=== PATIENT | female | born 1970 | race Caucasian/White ===

== ENCOUNTER 2018-05-25 00:46 | Observation (INO) ==
[2018-05-25] MEDS ORDERED: 0.9 % Sodium Chloride 500 ML IVC ONE (01:12)
[2018-05-25 01:31] LABS: Basophils % 0.5 %; Eosinophils # 0.1 K/mcL (0.0-0.6); Eosinophils % 0.8 %; Hematocrit 37.3 % (35.3-44.9); Hemoglobin 12.7 g/dL (11.5-15.4); Immature Granulocytes % 0.1 % (0-4); Lymphocytes # 3.6 K/mcL (0.6-4.6); Lymphocytes % 42.6 %; Mean Corpuscular Hemoglobin 31.8 pg (28.0-33.3); Mean Corpuscular Volume 93.3 fL (83.0-100.0); Mean Platelet Volume 10.9 fL (9.4-12.4); Monocytes # 0.5 K/mcL (0.0-1.3); Monocytes % 6.1 %; Neutrophils # 4.3 K/mcL (1.6-8.9); Platelet Count 208 K/mcL (140-400); Segmented Neutrophils % 49.9 %
[2018-05-25 01:32] LABS: INR 0.9; Prothrombin Time 10.4 Seconds (9.4-12.1)
[2018-05-25 01:35] LABS: Activated Partial Thrombo Time 29.6 Seconds (26.0-36.0)
--- NOTE | 2018-05-25 01:35 | Emergency Department Note ---
Disposition Clinical Impression: Chest pain Qualifiers: Chest pain type: unspecified Qualified Code(s): R07.9 - Chest pain, unspecified Disposition: Admitted As Inpatient Condition: Good Chest Pain HPI - General Chief Complaint: ED Chest Pain Stated Complaint: Chest Pain Time Seen by Provider: 05/25/18 00:52 Source: patient Mode of arrival: ambulatory Limitations: no limitations Vital Signs Reviewed: Yes Nursing Notes Reviewed: Yes - History of Present Illness HPI Narrative: Patient presents to the ED with the chief complaint of chest pain. Patient has a fairly extensive cardiac history. She does not have a history of any stents or bypasses. However, she has had an ASD repair. She most recently had one and 2017 in [place]. She is currently followed at the [facility]. 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 States that she started having pain earlier this evening that was described as "crushing, substernal" states that it was radiating through to her back. Denies any fever or chills. It did make her feel short of breath. She also has a history of bradycardia. Denies any abdominal pain, nausea, vomiting or diarrhea. No rash or pain or swelling in her legs. She took 4 nitroglycerin at home without relief. Severity scale (1-10): 7 - Related Data Home Medications Medication Instructions Recorded Confirmed Albuterol Sulfate [Albuterol 1 puff IH BID 05/25/18 05/25/18 Inhaler] Aspirin/Calcium Carbonate/Mag 325 mg PO DAILY 05/25/18 05/25/18 [Aspirin Buffered 325 mg Tab] Atorvastatin [Lipitor] 10 mg PO HS 05/25/18 05/25/18 Estrogens,Esterified [Menest] 1.25 mg PO DAILY 05/25/18 05/25/18 Isosorbide MONOnitrate (24 HR) 120 mg PO DAILY 05/25/18 05/25/18 [Imdur] Levothyroxine [Synthroid] 25 mcg PO DAILY 05/25/18 05/25/18 Metoprolol [Lopressor] 25 mg PO DAILY 05/25/18 05/25/18 Nitroglycerin [Nitrostat] 0.4 mg SL PRN PRN 05/25/18 05/25/18 RX: traZODone [TraZODone] 50 mg PO 05/25/18 Ranolazine [Ranexa] 500 mg PO BID 05/25/18 05/25/18 Sertraline [Zoloft] 200 mg PO DAILY 05/25/18 05/25/18 lamoTRIgine [Lamictal] 100 mg PO DAILY 05/25/18 05/25/18 Allergies Allergy/AdvReac Type Severity Reaction Status Date / Time morphine Allergy Itching Verified 05/25/18 00:51 Sulfa (Sulfonamide Allergy Hives Verified 05/25/18 00:51 Antibiotics) Review of Systems: As reviewed in the HPI. All other systems reviewed are negative or normal. 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 - Social History Smoking Status: Never smoker Alcohol use: Reports: none Drug use: Reports: none Physical Exam CONSTITUTIONAL: [well appearing, alert and in no acute distress] EYES: [EOMI, clear conjunctiva, PERRLA] HENT: [Normocephalic, atraumatic, moist mucus membranes, normal oropharynx] NECK: [normal inspection, full ROM, trachea midline, no obvious swelling] PULMONARY: [normal lung sounds bilaterally, normal chest rise and fall, no respiratory distress or stridor, no wheezes, no rales, no rhonchi CARDIOVASCULAR: [slow rate, regular rhythm, normal heart sounds, possibly faint systolic murmur but rate is slow and difficult to hear, distal extremities are warm and well perfused] GASTROINSTESTINAL: [soft, non-tender, non-rigid, non-distended, no guarding, no rebound, normal bowel sounds] GENITOURINARY/RECTAL: [deferred] NEUROLOGIC: [Alert, oriented x3, normal speech, moves all extremities] EXTREMITIES: [Normal inspection, full ROM, no tenderness, no pedal edema, normal capillary refill] MUSCULOSKELETAL: [no gross deformities, atraumatic] SKIN: [No cyanosis, no diaphoresis, normal color, warm, no rash] PSYCHIATRIC: [normal mood and affect] - General Limitations: no limitations General appearance: alert, in no apparent distress Course - Reevaluation(s) Reevaluation #1: Patient with borderline blood pressure. She was placed on nitroglycerin as this has helped her in the past. Patient's nitro drip did help improve patient's pain. This will be titrated as needed. Troponin is negative. Patient will be admitted for further evaluation. - Consultations Consultation #1: Discussed with hospitalist. Patient accepted for admission. Vital Signs Temperature 98.0 F 05/25/18 00:51 Pulse Rate 47 05/25/18 00:51 Respiratory Rate 14 05/25/18 00:51 Blood Pressure 159/79 05/25/18 00:51 O2 Sat by Pulse Oximetry 99 05/25/18 00:51 Temperature 97.9 F 05/25/18 04:03 Pulse Rate 52 05/25/18 04:03 Respiratory Rate 15 05/25/18 04:03 Blood Pressure 108/70 05/25/18 04:03 O2 Sat by Pulse Oximetry 98 05/25/18 04:03 Oxygen Delivery Oxygen Delivery Room Air Chest Pain - Medical Records Medical records reviewed: Yes I reviewed the patient's medical records. - Lab Data Lab results reviewed: Yes I reviewed the patient's lab results. Result diagrams: 05/25/18 01:00 05/25/18 01:00 Lab Results 05/25/18 05/25/18 05/25/18 Range/Units 01:00 01:00 01:00 WBC 8.5 (4.3-11.1) K/mcL RBC 4.00 (3.82-4.97) M/mcL Hgb 12.7 (11.5-15.4) g/dL Hct 37.3 (35.3-44.9) % MCV 93.3 (83.0-100.0) fL MCH 31.8 (28.0-33.3) pg MCHC 34.0 (31.6-35.5) g/dL RDW 13.0 (11.5-14.5) % Plt Count 208 (140-400) K/mcL MPV 10.9 (9.4-12.4) fL Immature Gran % 0.1 (0-4) % Seg Neutrophils % 49.9 % Lymphocytes % 42.6 % Monocytes % 6.1 % Eosinophils % 0.8 % Basophils % 0.5 % Neutrophils # 4.3 (1.6-8.9) K/mcL Lymphocytes # 3.6 (0.6-4.6) K/mcL Monocytes # 0.5 (0.0-1.3) K/mcL Eosinophils # 0.1 (0.0-0.6) K/mcL Basophils # 0.0 (0.0-0.2) K/mcL PT 10.4 (9.4-12.1) Seconds INR 0.9 APTT 29.6 (26.0-36.0) Seconds Sodium (136-145) mEq/L Potassium (3.5-5.1) mEq/L Chloride (98-107) mEq/L Carbon Dioxide (23-29) mEq/L BUN (6-20) mg/dL Creatinine (0.60-1.20) mg/dL Est GFR ( Amer) (> 60) Est GFR (Non-Af Amer) (> 60) BUN/Creatinine Ratio (6-26) Glucose (70-105) mg/dL Calculated Osmolality (280-300) Calcium (8.6-10.3) mg/dL Troponin I (< 0.04) ng/mL B-Natriuretic Peptide 65 (Less than 100) pg/mL 05/25/18 Range/Units 01:00 WBC (4.3-11.1) K/mcL RBC (3.82-4.97) M/mcL Hgb (11.5-15.4) g/dL Hct (35.3-44.9) % MCV (83.0-100.0) fL MCH (28.0-33.3) pg MCHC (31.6-35.5) g/dL RDW (11.5-14.5) % Plt Count (140-400) K/mcL MPV (9.4-12.4) fL Immature Gran % (0-4) % Seg Neutrophils % % Lymphocytes % % Monocytes % % Eosinophils % % Basophils % % Neutrophils # (1.6-8.9) K/mcL Lymphocytes # (0.6-4.6) K/mcL Monocytes # (0.0-1.3) K/mcL Eosinophils # (0.0-0.6) K/mcL Basophils # (0.0-0.2) K/mcL PT (9.4-12.1) Seconds INR APTT (26.0-36.0) Seconds Sodium 139 (136-145) mEq/L Potassium 3.6 (3.5-5.1) mEq/L Chloride 105 (98-107) mEq/L Carbon Dioxide 27 (23-29) mEq/L BUN 16 (6-20) mg/dL Creatinine 0.87 (0.60-1.20) mg/dL Est GFR ( Amer) > 60 (> 60) Est GFR (Non-Af Amer) > 60 (> 60) BUN/Creatinine Ratio 18 (6-26) Glucose 83 (70-105) mg/dL Calculated Osmolality 288 (280-300) Calcium 9.2 (8.6-10.3) mg/dL Troponin I < 0.03 (< 0.04) ng/mL B-Natriuretic Peptide (Less than 100) pg/mL - Radiology Data Radiology results reviewed: Yes I reviewed the patient's radiology results. - EKG Data EKG attestation: Yes I reviewed and interpreted this EKG. Heart Score - Score History: Highly Suspicious EKG: Non Specific repolarisation Disturbance Age: 45-65 Risk Factors: Equal/Greater than 3 risk factor or history of atherosclerotic disease Troponin: Less than normal limit HEART Score Total: 6
[2018-05-25 01:41] LABS: BUN/Creatinine Ratio 18 (6-26); Blood Urea Nitrogen 16 mg/dL (6-20); Calcium 9.2 mg/dL (8.6-10.3); Carbon Dioxide 27 mEq/L (23-29); Chloride 105 mEq/L (98-107); Glucose 83 mg/dL (70-105); Osmolality,Calculated 288 (280-300); Potassium 3.6 mEq/L (3.5-5.1); Sodium 139 mEq/L (136-145); eGFR For Non-African Americans > 60 (> 60)
[2018-05-25 01:42] LABS: Troponin I < 0.03 ng/mL (< 0.04)
[2018-05-25] MEDS ORDERED: Nitroglycerin 25 MG/250 ML INFUS..BTL IVC SCH (02:00)
[2018-05-25] MEDS: Isovue-370 500 ML INFUS..BTL IV ONE ×2 (02:04→02:05)
--- NOTE | 2018-05-25 03:51 | Emergency Department Note ---
Disposition Clinical Impression: Chest pain Qualifiers: Chest pain type: unspecified Qualified Code(s): R07.9 - Chest pain, unspecified Disposition: Admitted As Inpatient Condition: Good Chest Pain HPI - General Chief Complaint: ED Chest Pain Stated Complaint: Chest Pain Time Seen by Provider: 05/25/18 00:52 Source: patient Mode of arrival: ambulatory Limitations: no limitations Vital Signs Reviewed: Yes Nursing Notes Reviewed: Yes - History of Present Illness Severity scale (1-10): 3 - Related Data Home Medications Medication Instructions Recorded Confirmed Albuterol Sulfate [Albuterol 1 puff IH BID 05/25/18 05/25/18 Inhaler] Aspirin/Calcium Carbonate/Mag 325 mg PO DAILY 05/25/18 05/25/18 [Aspirin Buffered 325 mg Tab] Atorvastatin [Lipitor] 10 mg PO HS 05/25/18 05/25/18 Estrogens,Esterified [Menest] 1.25 mg PO DAILY 05/25/18 05/25/18 Isosorbide MONOnitrate (24 HR) 120 mg PO DAILY 05/25/18 05/25/18 [Imdur] Levothyroxine [Synthroid] 25 mcg PO DAILY 05/25/18 05/25/18 Metoprolol [Lopressor] 25 mg PO DAILY 05/25/18 05/25/18 Nitroglycerin [Nitrostat] 0.4 mg SL PRN PRN 05/25/18 05/25/18 RX: traZODone [TraZODone] 50 mg PO 05/25/18 Ranolazine [Ranexa] 500 mg PO BID 05/25/18 05/25/18 Sertraline [Zoloft] 200 mg PO DAILY 05/25/18 05/25/18 lamoTRIgine [Lamictal] 100 mg PO DAILY 05/25/18 05/25/18 Allergies Allergy/AdvReac Type Severity Reaction Status Date / Time morphine Allergy Itching Verified 05/25/18 00:51 Sulfa (Sulfonamide Allergy Hives Verified 05/25/18 00:51 Antibiotics) Chest Pain PMH - Past Medical History Medical history: Reports: CVA, hypertension, TIA Psychiatric history: 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 - Social History Smoking Status: Never smoker Alcohol use: Reports: none Drug use: Reports: none Physical Exam - General Limitations: no limitations General appearance: alert, in no apparent distress Course Vital Signs Temperature 98.0 F 05/25/18 00:51 Pulse Rate 47 05/25/18 00:51 Respiratory Rate 14 05/25/18 00:51 Blood Pressure 159/79 05/25/18 00:51 O2 Sat by Pulse Oximetry 99 05/25/18 00:51 Temperature 97.9 F 05/25/18 04:03 Pulse Rate 52 05/25/18 04:03 Respiratory Rate 15 05/25/18 04:03 Blood Pressure 108/70 05/25/18 04:03 O2 Sat by Pulse Oximetry 98 05/25/18 04:03 Oxygen Delivery Oxygen Delivery Room Air Chest Pain - Lab Data Result diagrams: 05/25/18 01:00 05/25/18 01:00 Lab Results 05/25/18 05/25/18 05/25/18 Range/Units 01:00 01:00 01:00 WBC 8.5 (4.3-11.1) K/mcL RBC 4.00 (3.82-4.97) M/mcL Hgb 12.7 (11.5-15.4) g/dL Hct 37.3 (35.3-44.9) % MCV 93.3 (83.0-100.0) fL MCH 31.8 (28.0-33.3) pg MCHC 34.0 (31.6-35.5) g/dL RDW 13.0 (11.5-14.5) % Plt Count 208 (140-400) K/mcL MPV 10.9 (9.4-12.4) fL Immature Gran % 0.1 (0-4) % Seg Neutrophils % 49.9 % Lymphocytes % 42.6 % Monocytes % 6.1 % Eosinophils % 0.8 % Basophils % 0.5 % Neutrophils # 4.3 (1.6-8.9) K/mcL Lymphocytes # 3.6 (0.6-4.6) K/mcL Monocytes # 0.5 (0.0-1.3) K/mcL Eosinophils # 0.1 (0.0-0.6) K/mcL Basophils # 0.0 (0.0-0.2) K/mcL PT 10.4 (9.4-12.1) Seconds INR 0.9 APTT 29.6 (26.0-36.0) Seconds Sodium (136-145) mEq/L Potassium (3.5-5.1) mEq/L Chloride (98-107) mEq/L Carbon Dioxide (23-29) mEq/L BUN (6-20) mg/dL Creatinine (0.60-1.20) mg/dL Est GFR ( Amer) (> 60) Est GFR (Non-Af Amer) (> 60) BUN/Creatinine Ratio (6-26) Glucose (70-105) mg/dL Calculated Osmolality (280-300) Calcium (8.6-10.3) mg/dL Troponin I (< 0.04) ng/mL B-Natriuretic Peptide 65 (Less than 100) pg/mL 05/25/18 Range/Units 01:00 WBC (4.3-11.1) K/mcL RBC (3.82-4.97) M/mcL Hgb (11.5-15.4) g/dL Hct (35.3-44.9) % MCV (83.0-100.0) fL MCH (28.0-33.3) pg MCHC (31.6-35.5) g/dL RDW (11.5-14.5) % Plt Count (140-400) K/mcL MPV (9.4-12.4) fL Immature Gran % (0-4) % Seg Neutrophils % % Lymphocytes % % Monocytes % % Eosinophils % % Basophils % % Neutrophils # (1.6-8.9) K/mcL Lymphocytes # (0.6-4.6) K/mcL Monocytes # (0.0-1.3) K/mcL Eosinophils # (0.0-0.6) K/mcL Basophils # (0.0-0.2) K/mcL PT (9.4-12.1) Seconds INR APTT (26.0-36.0) Seconds Sodium 139 (136-145) mEq/L Potassium 3.6 (3.5-5.1) mEq/L Chloride 105 (98-107) mEq/L Carbon Dioxide 27 (23-29) mEq/L BUN 16 (6-20) mg/dL Creatinine 0.87 (0.60-1.20) mg/dL Est GFR ( Amer) > 60 (> 60) Est GFR (Non-Af Amer) > 60 (> 60) BUN/Creatinine Ratio 18 (6-26) Glucose 83 (70-105) mg/dL Calculated Osmolality 288 (280-300) Calcium 9.2 (8.6-10.3) mg/dL Troponin I < 0.03 (< 0.04) ng/mL B-Natriuretic Peptide (Less than 100) pg/mL Attestation Statement - Attestation Attestation: Resident Attestation: I examined this patient and my medical decision making was reviewed with the Resident Physician. I agree with the documented findings, disposition and treatment plan as described except to the extent set forth below. We independently had [id number] contact with the patient Please see resident note for complete details and disposition. Patient with significant cardiac history including ASD repair. She had this performed at [facility] in 2008. This did have to undergo revision in 2017 the [facility]. She has been followed by [facility] for evaluation in the adult congenital heart disease clinic. The patient has had previous heart catheter. 20% lesions. 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 She has been given nitroglycerin home. Pain today is worse in intensity and duration than usual. It did not resolve with 4 nitroglycerin at home. Typically nitroglycerin resolves her pain. Patient's blood pressure is 110 systolic. Her heart rate has been bradycardic. Bradycardic is baseline for her. She has multiple episodes of syncope. She is not allowed to drive without checking her blood pressure and heart rate. At this time the patient will be started on nitro drip. Blood work, EKG, chest x- ray have been ordered. Patient will likely require admission for continued man agement. No acute distress, regular rhythm, clear to auscultation bilaterally, no significant peripheral edema.
[2018-05-25] MEDS ORDERED: *HR* FentaNYL (PF) 100 MCG/2 ML VIAL IVP PRN (04:52)
[2018-05-25] MEDS ORDERED: Ondansetron 4 MG/2 ML VIAL IVP PRN ×2 (04:52→12:21)
[2018-05-25] MEDS ORDERED: Nitroglycerin 0.4 MG TAB.SUBL SL SCH (08:02)
[2018-05-25] MEDS ORDERED: Naloxone 0.4 MG/ML INJ IVP PRN (08:03)
[2018-05-25 08:27] LABS: Bilirubin,Urine Negative (Negative); Blood,Urine Negative (Negative); Clarity,Urine Clear (Clear); Color,Urine Yellow (Yellow); Glucose,Urine (UA) Normal (Normal); Ketones,Urine Negative (Negative); Leukocyte Esterase,Urine Negative (Negative); Nitrite,Urine Negative (Negative); PH,Urine 6.5 pH Units (5.0-8.0); Protein,Urine Negative (Neg-Trace); Specific Gravity,Urine 1.025 (1.010-1.025); Urobilinogen,Urine Normal (Normal)
[2018-05-25] MEDS ORDERED: Levothyroxine 25 MCG TABLET PO SCH (09:00)
[2018-05-25] MEDS: ASPIRIN PO SCH (09:49)
[2018-05-25] MEDS: Ranolazine 500 MG TAB.ER.12H PO SCH ×2 (09:49→19:59)
[2018-05-25] MEDS: lamoTRIgine 100 MG TABLET PO SCH (09:49)
[2018-05-25] MEDS: Isosorbide MONOnitrate (24 HR) 60 MG TAB.ER.24H PO SCH (09:49)
[2018-05-25] MEDS: Nitroglycerin 0.4 MG TAB.SUBL SL PRN ×5 (09:50→20:00)
--- NOTE | 2018-05-25 10:22 | Internal Med History&Physical ---
Date of Encounter: 05/25/18 Time of Encounter: 10:22 Internal Medicine - H&P: HPI Chief complaint: Chest pain Admitted From: Home Plans for Post Hospital Care: Home History of present illness: Ms. De La Rosa is a 48 year old female with hx of ASD s/p repair at [facility] in 2008, she is also s/p revision of repair in 2017 the [facility]. She has been followed by [facility] for evaluation in the adult congenital heart disease clinic. She presentd to the ER with complains of retrosternal chest pain ot improved by her home doses of NTG. She used 4 NTGS SL prior to presentation without resolution. She denies associated palpitations, dizziness, SOB, leg edema, cough or pleurisy She has had a LHC with no significant obstructive lesions and has been told she has Prizmetal angina There is no CCB on her home list, patient states she gets bradycardic and hypotensive often She also had a stress test March this year that was negative for infarcts or ischemia In the ER, she was started on a nitro drip which was discontinued due to low blood pressures on the floors At my time of review, she had received SL NTG X3 and was chest pain free but complaining of a headache Work up in ER showed normal CBC, Chem, LFT, Negative trop , BNP WNL, UA is clean Chest, Abdomen and Pelvic CTA showed no PE, no acute abnormality in the chest, abdomen or pelvis EKG reviewed She will be placed on observation for chest pain likely due to presents mental angina, rule out ACS. Cardiology will be consulted due to patient's complicated Cardiac history Past Med Surg Social Fam HX - Past Medical History Medical history: hypertension Additional medical history: microvascular heart disease, vasovagal syncope Psychiatric history: no psych history - Past Surgical History Surgical History: appendectomy, cholecystectomy, hysterectomy, orthopedic, other Additional surgical history: asd repair x 2 - Social History Smoking Status: Never smoker Smokeless Tobacco Status: No Alcohol use: none Drug use: none - Family History Mother Hx Family Cardiac Disorders: Yes Brother Living Status: Cause of : pulmonary embolism Internal Medicine - H&P: Meds Albuterol Sulfate [Albuterol Inhaler] 1 puff IH BID 05/25/18 [History] Aspirin/Calcium Carbonate/Mag [Aspirin Buffered 325 mg Tab] 325 mg PO DAILY 05/25/18 [History] Atorvastatin [Lipitor] 10 mg PO HS 05/25/18 [History] Estrogens,Esterified [Menest] 1.25 mg PO DAILY 05/25/18 [History] Isosorbide MONOnitrate (24 HR) [Imdur] 120 mg PO DAILY 05/25/18 [History] Levothyroxine [Synthroid] 25 mcg PO DAILY 05/25/18 [History] Metoprolol [Lopressor] 25 mg PO DAILY 05/25/18 [History] Nitroglycerin [Nitrostat] 0.4 mg SL PRN PRN 05/25/18 [History] Ranolazine [Ranexa] 500 mg PO BID 05/25/18 [History] Sertraline [Zoloft] 200 mg PO DAILY 05/25/18 [History] lamoTRIgine [Lamictal] 100 mg PO DAILY 05/25/18 [History] traZODone [TraZODone] 50 mg PO 05/25/18 [History] Allergy/AdvReac Type Severity Reaction Status Date / Time morphine Allergy Itching Verified 05/25/18 00:51 Sulfa (Sulfonamide Allergy Hives Verified 05/25/18 00:51 Antibiotics) All Systems PM: A 10-system review of systems was performed and is negative for pertinent findings except as documented above in the HPI. - Constitutional Constitutional: no chills, no fever(s), no night sweats - EENT Eyes: no change in vision, no discharge, no pain, no photophobia Ears: no ear discharge, no ear pain, no tinnitus Nose, mouth and throat: no dysphagia, no nasal discharge, no neck pain, no sore throat - Cardiovascular Cardiovascular ROS IM: as per HPI, chest pain, no diaphoresis, no dyspnea, no lightheadedness, no palpitations, no syncope - Respiratory Respiratory: no cough, no dyspnea, no wheezing, no excessive phlegm production - Gastrointestinal Gastrointestinal: no abdominal pain, no diarrhea, no hematemesis, no hematochezia, no melena, no nausea, no vomiting - Genitourinary Genitourinary: no change in urinary stream, no dysuria, no flank pain, no hematuria - Musculoskeletal Musculoskeletal ROS IM: no numbness, no tingling - Integumentary Integumentary IM: no rash, no unusual bruising - Neurological Neurological ROS: no confusion, no convulsions, no focal weakness, no numbness, no tingling, no tremor(s) - Hematologic/Lymphatic Hematologic/Lymphatic: no easy bruising - Constitutional Vitals: Temp Pulse Resp BP Pulse Ox 97.8 F 54 16 94/54 97 05/25/18 07:58 05/25/18 07:58 05/25/18 09:48 05/25/18 07:58 05/25/18 09:48 General appearance: Present: A&O X 3, pleasant, no acute distress Exam: see below - Head Head exam: Present: atraumatic, normocephalic - Eye Eye exam: Present: PERRL, conjuntiva pink, sclera anicteric Pupils: Present: PERRL - Neck Neck exam general surgery: Present: supple, trachea midline. Absent: lymphadenopathy - Respiratory Respiratory exam: Present: CTAB. Absent: accessory muscle use, rales, rhonchi, wheezes Additional comments: scar+ - Cardiovascular Cardiovascular exam: Present: RRR, +S1, +S2. Absent: diastolic murmur, gallop, rubs, systolic murmur - GI/Abdominal GI/Abdominal exam: Present: normal bowel sounds, soft, no peritoneal signs. Absent: distended, tenderness - Extremities Exam Extremities exam: Present: warm, radial pulses palpable and symmetrical. Absent: calf tenderness, cyanotic, pedal edema - Neurological Exam Neurological exam: Present: CN II-XII intact, oriented X3, no focal deficits. A bsent: pronater drift, facial droop, speech deficit - Skin Skin exam: Present: dry, intact Internal Med - H&P Results - Labs CBC & Chem 7: 05/25/18 01:00 05/25/18 01:00 Labs: Short CBC 05/25/18 Range/Units 01:00 WBC 8.5 (4.3-11.1) K/mcL Hgb 12.7 (11.5-15.4) g/dL Hct 37.3 (35.3-44.9) % Plt Count 208 (140-400) K/mcL Neutrophils # 4.3 (1.6-8.9) K/mcL BMP 05/25/18 01:00 Sodium 139 Potassium 3.6 Chloride 105 Carbon Dioxide 27 BUN 16 Creatinine 0.87 Glucose 83 Calcium 9.2 Cardiac Enzymes 05/25/18 05/25/18 Range/Units 01:00 09:03 Troponin I < 0.03 < 0.03 (< 0.04) ng/mL Urine 05/25/18 Range/Units 07:30 Urine Color Yellow (Yellow) Urine Clarity Clear (Clear) Urine pH 6.5 (5.0-8.0) pH Units Ur Specific [place] 1.025 (1.010-1.025) Urine Protein Negative (Neg-Trace) mg/dL Urine Glucose (UA) Normal (Normal) mg/dL - Impressions ITS Impressions Abdomen/Pelvis CTA 05/25/18 00:00 IMPRESSION: No evidence of aortic dissection or aneurysm. No acute abnormality in the chest, abdomen or pelvis. No evidence of pulmonary embolism. D/ / Kyaw Marroquin MD / Kyaw Marroquin MD Interpreting Provider: Kyaw Marroquin MD Chest X-Ray 05/25/18 01:13 IMPRESSION: 1. No active pulmonary disease. D/ / Esteban Arias MD / Esteban Arias MD Interpreting Provider: Esteban Arias MD Chest CTA 05/25/18 01:14 IMPRESSION: No evidence of aortic dissection or aneurysm. No acute abnormality in the chest, abdomen or pelvis. No evidence of pulmonary embolism. D/ / Kyaw Marroquin MD / Kyaw Marroquin MD Interpreting Provider: Kyaw Marroquin MD - Assessment and plan (1) Prinzmetal variant angina Current Visit: Yes Status: Acute Assessment and plan: Give Cardizem 10mg IVP Give Amlodipine 10mg now and daily Hold metoprolol for blood pressure Stress test one 03/2018 negative prior cath within this past year negative Cycle trops Obtain ECHO Continue other home meds, including NTG prn Cardiology has been called and consulted (2) Hypothyroidism Current Visit: Yes Status: Chronic Assessment and plan: continue home meds Qualifiers: Hypothyroidism type: unspecified Qualified Code(s): E03.9 - Hypothyroidism, unspecified (3) History of repair of atrial septal defect Current Visit: Yes Status: Chronic Assessment and plan: Follows up at [facility] - Time Spent With Patient Total time spent is greater than 50% in coordination of care (as documented) at patient's floor/unit and/or counseling patient:
[2018-05-25] MEDS: Ibuprofen 400 MG TABLET PO PRN (12:11)
[2018-05-25] MEDS: amLODIPine 5 MG TABLET PO SCH (12:23)
[2018-05-25] MEDS: Acetaminophen 325 MG TABLET PO PRN (23:08)
--- NOTE | 2018-05-26 09:58 | Cardiology Consult Note ---
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 Relief with IV nitro gtt in ED, stopped d/t hypotension. Reports having a known diagnosis of Prinzmetal angina--on Imdur 120mg daily and Ranexa 500mg BID--intolerant to increased Ranexa dose d/t constipation. Hx of ASD repair and revision, follows at [facility] with testing scheduled in their autonomic lab in August. Reports LHC 04/2017 with nonobstructive disease and stress test 04/2018 that was negative--all testing at outside hospitals, records requested. Primary team started Norvasc 10mg daily. Currently hypotensive, will decrease dose. Troponin negative and TTE EF preserved. CTA negative. Will discuss and review with Dr. Wetzel to determine if any further testing or medication adjustments are warranted. (2) History of repair of atrial septal defect Current Visit: Yes Status: Chronic Follows at [facility]. TTE EF preserved. Discussion w patient/family: The assessment and plan as outlined above was discussed with the patient and/or family members who expressed understanding and agreement. All questions were answered. Thank you for involving us in the care of your patient. Please call with any questions. I will discuss all the above with Dr. Wetzel and make changes as necessary. History of Present Illness Consult date: 05/26/18 Consult reason: chest pain Chief complaint: chest pain History of present illness: Ms. De La Rosa is a 48 year old female with PMH of ASD s/p repair at [facility] in 2008 and subsequent revision in 2016. She follows at [facility] in the adult congenital heart disease clinic. She presentd to the ER with complains of retrosternal chest pain not improved by her home doses of NTG. She was started on a nitro gtt in ED with relief. She reports having a LHC with no significant obstructive lesions in 2016 and was told she has Prinzmetal angina and is on Ranexa and Imdur. Reports a stress test March this year that was negative. Troponin negative. Pt reports multiple tests being planned in August at [facility] in their autonomic lab. TTE has resulted--EF preserved, mild MR and TR. Cardiology consulted for further recs. Past Med Surg Social Fam HX - Past Medical History Medical history: hypertension, other Additional medical history: microvascular heart disease, vasovagal syncope Psychiatric history: no psych history - Past Surgical History Surgical History: appendectomy, cholecystectomy, hysterectomy, orthopedic, other Additional surgical history: asd repair x 2 - Social History Smoking Status: Never smoker Smokeless Tobacco Status: No Alcohol use: none Drug use: none - Family History Brother Living Status: Cause of : pulmonary embolism Mother Hx Family Cardiac Disorders: Yes Medications and Allergies Albuterol Sulfate [Albuterol Inhaler] 2 puff IH BID 05/25/18 [History] Atorvastatin [Lipitor] 10 mg PO HS 05/25/18 [History] Levothyroxine [Synthroid] 25 mcg PO DAILY 05/25/18 [History] Metoprolol [Lopressor] 25 mg PO DAILY 05/25/18 [History] Nitroglycerin [Nitrostat] 0.4 mg SL PRN PRN 05/25/18 [History] RX: traZODone [TraZODone] 12.5 mg PO HS PRN 05/25/18 [History] Ranolazine [Ranexa] 500 mg PO BID 05/25/18 [History] Sertraline [Zoloft] 200 mg PO DAILY 05/25/18 [History] lamoTRIgine [Lamictal] 100 mg PO DAILY 05/25/18 [History] Aspirin [Ecotrin] 325 mg PO HS 05/26/18 [History] Estrogens,Esterified [Menest] 1.25 mg PO DAILY 05/26/18 [History] Isosorbide MONOnitrate [Isosorbide Mononitrate ER] 120 mg PO DAILY 05/26/18 [History] Allergy/AdvReac Type Severity Reaction Status Date / Time morphine Allergy Itching Verified 05/25/18 00:51 Sulfa (Sulfonamide Allergy Hives Verified 05/25/18 00:51 Antibiotics) All Systems Review: The remainder of the systems were reviewed and are negative - Constitutional Constitutional: fatigue - Cardiovascular Cardiovascular: as per HPI, chest pain at rest, leg edema, lightheadedness Physical Examination Vital Signs, Last 4 Hours Temp Pulse Resp BP Pulse Ox 05/26/18 07:07 97.8 F 56 18 93/58 95 Vital Signs Temp Pulse Resp BP Pulse Ox 05/26/18 07:07 97.8 F 56 18 93/58 95 05/26/18 04:47 97.9 F 55 16 95/63 93 05/26/18 01:13 97.6 F 63 17 105/67 96 05/25/18 21:27 97.9 F 67 16 92/58 96 05/25/18 21:09 14 95 05/25/18 16:46 97.9 F 59 17 104/68 94 05/25/18 11:21 98.0 F 65 18 104/68 97 05/25/18 10:37 111/73 Intake and Output 05/25/18 05/26/18 05/26/18 23:59 07:59 15:59 Intake Total 240 / 240 Output Total 800 / 800 Balance -800 / -800 240 / 240 Intake: Oral 240 / 240 Output: Urine 800 / 800 Other: Meal Breakfast Percent of Meal Consumed 100% General: Conversant, No Apparent Distress HEENT: Atraumatic, Normocephaly, Mucus Membranes Moist Neck: No JVD, Normal carotid pulses Cardiac: Reg Rate and Rhythm, Normal S1 and S2, No Murmur Lungs: Normal Breath Sounds, No Wheeze, Rales, Rhonchi Neuro: Alert and responsive, No focal deficits noted Abdomen: Soft, Non-Tender Skin: No rashes noted on visualized skin Musculoskeletal: No Chest Wall Tenderness Extremities: No Clubbing, No Cyanosis, No Edema, Normal Pulses Results 05/25/18 01:00 05/25/18 01:00 Lab Results 05/25/18 13:44 Troponin I < 0.03 Cardiac Enzymes 05/25/18 Range/Units 13:44 Troponin I < 0.03 (< 0.04) ng/mL Impressions Abdomen/Pelvis CTA 05/25/18 00:00 IMPRESSION: No evidence of aortic dissection or aneurysm. No acute abnormality in the chest, abdomen or pelvis. No evidence of pulmonary embolism. D/ / 05/25/2018 10:58:30 Kyaw Marroquin MD / howie Interpreting Provider: Kyaw Marroquin MD Chest CTA 05/25/18 01:14 IMPRESSION: No evidence of aortic dissection or aneurysm. No acute abnormality in the chest, abdomen or pelvis. No evidence of pulmonary embolism. D/ / 05/25/2018 10:58:30 Kyaw Marroquin MD / earnold Interpreting Provider: Kyaw Marroquin MD Echocardiogram 05/25/18 08:05 Impressions: LVEF 60%. Indeterminate diastolic function. Normal right ventricular structure and function. Mild mitral regurgitation. Mild tricuspid regurgitation. No evidence of interatrial shunt with color-flow Doppler or agitated saline Active Medications Acetaminophen (Tylenol) 650 mg PO Q6HR PRN PRN Reason: Mild Pain/Fever Stop: 11/24/18 08:04 Last Admin: 05/25/18 23:08 Dose: 650 mg Albuterol Sulfate (Albuterol Inhaler) 1 puff IH BID [facility] Stop: 11/24/18 09:01 Last Admin: 05/26/18 08:03 Dose: 1 puff Amlodipine Besylate (Norvasc) 10 mg PO DAILY [facility]; Protocol Stop: 11/24/18 12:01 Last Admin: 05/25/18 12:23 Dose: 10 mg Aspirin (Aspirin Ec) 325 mg PO DAILY [facility] Stop: 11/24/18 09:01 Last Admin: 05/25/18 09:49 Dose: 325 mg Atorvastatin Calcium (Lipitor) 10 mg PO HS [facility] Stop: 11/24/18 21:01 Last Admin: 05/25/18 19:59 Dose: 10 mg Ibuprofen (Motrin) 400 mg PO Q6HR PRN PRN Reason: Headache Stop: 11/24/18 12:01 Last Admin: 05/25/18 12:11 Dose: 400 mg Isosorbide Mononitrate (Imdur) 120 mg PO DAILY [facility] Stop: 11/24/18 09:01 Last Admin: 05/25/18 09:49 Dose: 120 mg Lamotrigine (Lamictal) 100 mg PO DAILY [facility] Stop: 11/24/18 09:01 Last Admin: 05/25/18 09:49 Dose: 100 mg Levothyroxine Sodium (Synthroid) 25 mcg PO DAILY@0630 [facility] Stop: 11/25/18 08:46 Metoprolol Tartrate (Lopressor) 12.5 mg PO DAILY [facility] Stop: 11/25/18 09:01 Naloxone HCl (Narcan) 0.4 mg IVP Q2MIN PRN PRN Reason: SEE COMMENTS Stop: 11/24/18 08:04 Nitroglycerin (Nitroglycerin) 0.4 mg SL Q5MIN PRN PRN Reason: Chest Pain Stop: 11/24/18 09:31 Last Admin: 05/25/18 20:00 Dose: 0.4 mg Ondansetron HCl (Zofran) 4 mg IVP Q8HR PRN; Protocol PRN Reason: Nausea And Vomiting Stop: 11/24/18 12:22 Ranolazine (Ranexa) 500 mg PO BID [facility] Stop: 11/24/18 09:01 Last Admin: 05/25/18 19:59 Dose: 500 mg Sertraline HCl (Zoloft) 200 mg PO DAILY [facility] Stop: 11/24/18 09:01 Last Admin: 05/25/18 09:49 Dose: 200 mg - Imaging and Cardiology Echo: report reviewed - EKG Interpretation EKG results cardiology: personally reviewed, other (12 hr tele AVG HR 61, SR, no significant pauses or arrhythmias) Consult Discharge Plan - Plan Referrals: Ehsan Ludwig DO [Primary Care Provider] - <Robby Wetzel - Last Filed: 05/26/18 14:47> - Attending Attestation I have personally performed a face to face evaluation on this patient. I have reviewed and agree with the care plan. History and Exam by me shows: 48-year-old female with history of ASD open night and once again revision with minimally invasive approach at [facility] in 2017. Patient also had a LHC due to chest pain and was found to have Prinzmetal's angina. Documented not available for review at this time. She currently is on Ranexa and Imdur at high doses for her chest pain along with metoprolol which has been weaned off through the [facility]. Patient initially on presentation was started on Norvasc. I will discontinue her Norvasc and replace it with Cardizem for her Prinzmetal angina and slowly wean off her metoprolol due to history of bradycardia. If pain is controlled ultimately we will decrease her Imdur due to dizziness lightheadedness and faintness associated with hypotension for which the patient has been complaining of. Patient likely will need follow-up with the [facility] once again for further titration and management of her medications. Will obtain records and review once available. Echocardiogram unremarkable with a preserved ejection fraction and no regional wall motion modalities. Cardiac enzymes also negative 3 Assessment and Plan Discussion w patient/family: The assessment and plan as outlined above was discussed with the patient and/or family members who expressed understanding and agreement. All questions were answered. Thank you for involving us in the care of your patient. Please call with any questions. History of Present Illness History of present illness: Ms. De La Rosa is a 48 year old female All Systems Review: The remainder of the systems were reviewed and are negative Physical Examination Vital Signs, Last 4 Hours Temp Pulse Resp BP Pulse Ox 05/26/18 11:56 98.1 F 65 18 107/67 93 Results 05/25/18 01:00 05/25/18 01:00 Lab Results 05/25/18 13:44 Troponin I < 0.03
--- NOTE | 2018-05-26 11:22 | Internal Med Progress Note ---
Hospitalist Progress Note - Encounter Date of Encounter: 05/26/18 Time of Encounter: 11:21 - Subjective Interval History: Seen and evaluated at bedside She reports her chest pain has improved and she is currently tyrone pain free Cardio eval is noted-will await final recommendations ECHO is unremarkable - Exam Vitals: Temp Pulse Resp BP Pulse Ox 97.8 F 56 18 93/58 95 05/26/18 07:07 05/26/18 07:07 05/26/18 07:07 05/26/18 07:07 05/26/18 07:07 Exam: General: pleasant, without distress HEENT: Head atraumatic, normocephalic, EOMI, PERRL, Moist Mucous Membranes, CVS: RRR, S1, s2 normal, No MRG. no pedal edema. 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 Davis, likely change to cardizem Stress test done 03/2018 negative prior cath within this past year negative Tropa negative ECHO unremarkable Cardio eval noted-will follow final recs Continue other home meds, including NTG prn (2) Hypothyroidism Current Visit: Yes Status: Chronic Assessment and Plan: continue home meds (3) History of repair of atrial septal defect Current Visit: Yes Status: Chronic Assessment and Plan: Follows up at [facility] - Time Spent with Patient Total time spent is greater than 50% in coordination of care (as documented) at patient's floor/unit and/or counseling patient: Plan of Care Discussed with: patient Internal Medicine: Result - Labs CBC & Chem 7: 05/25/18 01:00 05/25/18 01:00 Labs: Cardiac Enzymes 05/25/18 Range/Units 13:44 Troponin I < 0.03 (< 0.04) ng/mL - ABG Interpretation ABG results: PT/INR, D-dimer PT 10.4 Seconds (9.4-12.1) 05/25/18 01:00 - Impressions Impressions Abdomen/Pelvis CTA 05/25/18 00:00 IMPRESSION: No evidence of aortic dissection or aneurysm. No acute abnormality in the chest, abdomen or pelvis. No evidence of pulmonary embolism. D/ / 05/25/2018 10:58:30 Kyaw Marroquin MD / angélica alegria Interpreting Provider: Kyaw Marroquin MD Chest CTA 05/25/18 01:14 IMPRESSION: No evidence of aortic dissection or aneurysm. No acute abnormality in the chest, abdomen or pelvis. No evidence of pulmonary embolism. D/ / 05/25/2018 10:58:30 Kyaw Marroquin MD / howie Interpreting Provider: Kyaw Marroquin MD Echocardiogram 05/25/18 08:05 Impressions: LVEF 60%. Indeterminate diastolic function. Normal right ventricular structure and function. Mild mitral regurgitation. Mild tricuspid regurgitation. No evidence of interatrial shunt with color-flow Doppler or agitated saline Consult Discharge Plan - Plan Referrals: Ehsan Ludwig DO [Primary Care Provider] - (2) Hypothyroidism Qualifiers: Hypothyroidism type: unspecified Qualified Code(s): E03.9 - Hypothyroidism, unspecified
[2018-05-26] MEDS: Isosorbide MONOnitrate (24 HR) 60 MG TAB.ER.24H PO SCH (12:12)
[2018-05-26] MEDS: ASPIRIN PO SCH (12:12)
[2018-05-26] MEDS: Ranolazine 500 MG TAB.ER.12H PO SCH ×2 (12:13→20:50)
[2018-05-26] MEDS: Levothyroxine 25 MCG TABLET PO SCH (12:13)
[2018-05-26] MEDS: lamoTRIgine 100 MG TABLET PO SCH (12:13)
[2018-05-26] MEDS: amLODIPine 5 MG TABLET PO SCH (12:16)
[2018-05-26] MEDS: Diltiazem CD (24hr) 120 MG CAPSULE PO SCH (13:20)
[2018-05-26] MEDS: Ibuprofen 400 MG TABLET PO PRN (16:33)
[2018-05-26] MEDS: Nitroglycerin 0.4 MG TAB.SUBL SL PRN ×3 (18:38→18:51)
[2018-05-26] MEDS: Acetaminophen 325 MG TABLET PO PRN (21:06)
[2018-05-27] MEDS: Levothyroxine 25 MCG TABLET PO SCH (06:18)
[2018-05-27] MEDS: ASPIRIN PO SCH (08:27)
[2018-05-27] MEDS: lamoTRIgine 100 MG TABLET PO SCH (08:27)
[2018-05-27] MEDS: Isosorbide MONOnitrate (24 HR) 60 MG TAB.ER.24H PO SCH (08:27)
[2018-05-27] MEDS: Diltiazem CD (24hr) 120 MG CAPSULE PO SCH (08:27)
[2018-05-27] MEDS: Ranolazine 500 MG TAB.ER.12H PO SCH (08:27)
[2018-05-27] MEDS ORDERED: amLODIPine 5 MG TABLET PO SCH (09:00)
--- NOTE | 2018-05-27 13:54 | Cardiology Progress Note ---
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 Relief with IV nitro gtt in ED, stopped d/t hypotension. Reports chronic daily chest pain. Reports having a known diagnosis of Prinzmetal angina--on Imdur 120mg daily and Ranexa 500mg BID--intolerant to increased Ranexa dose d/t constipation. Hx of ASD repair and revision, follows at [facility] with testing scheduled in their autonomic lab in August with Dr. Duenas. I spoke with him on the phone and he did not have any further recs at this time. Reports C 04/2017 with nonobstructive disease and stress test 04/2018 that was negative--all testing at outside hospitals, records requested. Started Cardizem CD 120mg daily in attempt to improve chest pain/vasospasm. Troponin negative and TTE EF preserved. CTA negative. No further inpt cardiac testing is necessary, as pt has ruled out and has multiple cardiac tests/work-up at outside facilities. Cardiology signing off. Reconsult PRN. Recommend follow-up with [facility] as outpt. (2) History of repair of atrial septal defect Current Visit: Yes Status: Chronic Follows at [facility]. TTE EF preserved. Discussion w patient/family: The assessment and plan as outlined above was discussed with the patient and/or family members who expressed understanding and agreement. All questions were answered. Thank you for involving us in the care of your patient. Please call with any questions. I will discuss all the above with Dr. Wetzel and make changes as necessary. Subjective Principal diagnosis: Chest pain Interval history: Pt reports she was feeling better this AM until she became stressed then intermittent chest pain began again, currently 5/10. Objective Vital Signs, Last 4 Hours Temp Pulse Resp BP Pulse Ox 05/27/18 11:18 97.8 F 58 16 112/75 99 Vital Signs Temp Pulse Resp BP Pulse Ox 05/27/18 11:18 97.8 F 58 16 112/75 99 05/27/18 07:18 98.1 F 51 17 103/65 97 05/27/18 03:51 97.4 F L 51 18 90/57 97 05/27/18 00:17 97.5 F L 59 18 99/60 96 05/26/18 21:16 97.4 F L 57 17 101/71 96 05/26/18 16:05 98.2 F 66 17 103/66 98 Intake and Output 05/26/18 05/27/18 05/27/18 23:59 07:59 15:59 Intake Total 740 / 740 360 / 360 Balance 740 / 740 360 / 360 Intake: IV Fluids 500 / 500 Oral 240 / 240 360 / 360 Other: Meal Dinner Lunch Percent of Meal Consumed 100% 80% # Voids 1 General: Conversant, No Apparent Distress HEENT: Atraumatic, Normocephaly, Mucus Membranes Moist Neck: No JVD, Normal carotid pulses Cardiac: Reg Rate and Rhythm, Normal S1 and S2, No Murmur Lungs: Normal Breath Sounds, No Wheeze, Rales, Rhonchi Neuro: Alert and responsive, No focal deficits noted Abdomen: Soft, Non-Tender Skin: No rashes noted on visualized skin Musculoskeletal: No Chest Wall Tenderness Extremities: No Clubbing, No Cyanosis, No Edema, Normal Pulses Results 05/25/18 01:00 05/25/18 01:00 Active Medications Acetaminophen (Tylenol) 650 mg PO Q6HR PRN PRN Reason: Mild Pain/Fever Stop: 11/24/18 08:04 Last Admin: 05/26/18 21:06 Dose: 650 mg Albuterol Sulfate (Albuterol Inhaler) 2 puff IH Q2H PRN PRN Reason: Shortness Of Breath/Wheezing Stop: 11/25/18 12:46 Aspirin (Aspirin Ec) 325 mg PO DAILY [facility] Stop: 11/24/18 09:01 Last Admin: 05/27/18 08:27 Dose: 325 mg Atorvastatin Calcium (Lipitor) 10 mg PO HS [facility] Stop: 11/24/18 21:01 Last Admin: 05/26/18 20:50 Dose: 10 mg Diltiazem HCl (Cardizem Cd) 120 mg PO DAILY [facility] Stop: 11/25/18 11:46 Last Admin: 05/27/18 08:27 Dose: 120 mg Ibuprofen (Motrin) 400 mg PO Q6HR PRN PRN Reason: Headache Stop: 11/24/18 12:01 Last Admin: 05/26/18 16:33 Dose: 400 mg Isosorbide Mononitrate (Imdur) 120 mg PO DAILY [facility] Stop: 11/24/18 09:01 Last Admin: 05/27/18 08:27 Dose: 120 mg Lamotrigine (Lamictal) 100 mg PO DAILY [facility] Stop: 11/24/18 09:01 Last Admin: 05/27/18 08:27 Dose: 100 mg Levothyroxine Sodium (Synthroid) 25 mcg PO DAILY@0630 [facility] Stop: 11/25/18 08:46 Last Admin: 05/27/18 06:18 Dose: 25 mcg Naloxone HCl (Narcan) 0.4 mg IVP Q2MIN PRN PRN Reason: SEE COMMENTS Stop: 11/24/18 08:04 Nitroglycerin (Nitroglycerin) 0.4 mg SL Q5MIN PRN PRN Reason: Chest Pain Stop: 11/24/18 09:31 Last Admin: 05/26/18 18:51 Dose: 0.4 mg Ondansetron HCl (Zofran) 4 mg IVP Q8HR PRN; Protocol PRN Reason: Nausea And Vomiting Stop: 11/24/18 12:22 Ranolazine (Ranexa) 500 mg PO BID [facility] Stop: 11/24/18 09:01 Last Admin: 05/27/18 08:27 Dose: 500 mg Sertraline HCl (Zoloft) 200 mg PO DAILY [facility] Stop: 11/24/18 09:01 Last Admin: 05/27/18 08:26 Dose: 200 mg - Imaging and Cardiology Echo: report reviewed - EKG Interpretation EKG results cardiology: other (12 hr tele AVG HR 54, SR) Consult Discharge Plan - Plan Referrals: Ehsan Ludwig DO [Primary Care Provider] - 06/03/18 1:30 pm (Please follow up as schedule...)
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
[2018-05-27 16:10] VITALS: BP 100/70
--- NOTE | 2018-05-29 07:48 | Electrocardiograph Report ---
[place] [id number] Test Date: 2018-05-25 Pat Name: Inocencia De La Rosa Department: [id number] Room: 2A39 Gender: F Data Communications Analyst: : 1970 Requested By: Tobias Hunter Order Number: [id number] Reading MD: Hernando Freire Measurements Intervals [place] Rate: 49 P: 48 NH: 144 QRS: -31 QRSD: 92 T: 60 QT: 461 QTc: 417 Interpretive Statements Sinus bradycardia Probable left atrial enlargement Left axis deviation Low voltage, extremity and precordial leads Electronically Signed On 05-29-2018 7:47:20 EDT by Hernando Freire
== END 2018-05-27 17:52 | disposition home or self-care (01) ==
LOC: EMEROOARM 00:46 → 2ANU 00:46 → SUATTDRO 02:58 → 2ANU 03:48
PROVIDERS: ADMIT Pediatrics; ATTEND Hospitalist

== ENCOUNTER 2021-12-09 17:03 | Observation (INO) ==
[2021-12-09 17:48] LABS: Basophils % 0.1 %; Eosinophils # 0.1 K/mcL (0.0-0.6); Eosinophils % 0.7 %; Hematocrit 43.9 % (35.3-44.9); Hemoglobin 14.6 g/dL (11.5-15.4); Immature Granulocytes % 0.3 % (0-4); Lymphocytes % 9.8 %; Mean Corpuscular HGB Conc 33.3 g/dL (31.6-35.5); Mean Corpuscular Hemoglobin 31.4 pg (28.0-33.3); Mean Corpuscular Volume 94.4 fL (83.0-100.0); Mean Platelet Volume 10.2 fL (9.4-12.4); Monocytes # 0.4 K/mcL (0.0-1.3); Monocytes % 3.4 %; Neutrophils # 8.9 K/mcL (1.6-8.9); Platelet Count 251 K/mcL (140-400); Red Blood Count 4.65 M/mcL (3.82-4.97); Red Cell Distribution Width 13.7 % (11.5-14.5); Segmented Neutrophils % 85.7 %; White Blood Count 10.4 K/mcL (4.3-11.1)
[2021-12-09 17:56] LABS: BUN/Creatinine Ratio 21 (6-26); Blood Urea Nitrogen 19 mg/dL (6-20); Calcium 8.8 mg/dL (8.6-10.3); Carbon Dioxide 22 mEq/L (23-29); Chloride 106 mEq/L (98-107); Glucose 91 mg/dL (70-105); Osmolality,Calculated 290 (280-300); Potassium 3.8 mEq/L (3.5-5.1); Prothrombin Time 10.9 Seconds (9.4-12.1); Sodium 139 mEq/L (136-145); eGFR For African Americans > 60 (> 60); eGFR For Non-African Americans > 60 (> 60)
[2021-12-09 17:57] LABS: Troponin I < 0.03 ng/mL (< 0.04)
[2021-12-09 17:59] LABS: Activated Partial Thrombo Time 30.8 Seconds (26.0-36.0)
[2021-12-09] MEDS ORDERED: 0.9 % Sodium Chloride 1,000 ML IV ONE (18:09)
[2021-12-09] MEDS ORDERED: *HR* HYDROmorphone (PF) 1 MG/ML SYRINGE IVP ONE (18:09)
[2021-12-09] MEDS ORDERED: Perflutren Lipid Microsphere 1.3 ML in 0.9 % Sodium Chloride 8.7 ML IVP PRN (21:21)
[2021-12-09] MEDS ORDERED: Naloxone 0.4 MG/ML INJ IVP PRN (21:27)
[2021-12-09] MEDS ORDERED: Acetaminophen 325 MG TABLET PO PRN (21:27)
[2021-12-09] MEDS ORDERED: Prochlorperazine 10 MG/2 ML VIAL IVP PRN (21:33)
[2021-12-09] MEDS: Nitroglycerin 0.4 MG TAB.SUBL SL PRN (21:57)
[2021-12-09] MEDS: lamoTRIgine 100 MG TABLET PO SCH (22:49)
[2021-12-10 02:08] LABS: Hematocrit 37.7 % (35.3-44.9); Mean Corpuscular HGB Conc 33.7 g/dL (31.6-35.5); Mean Corpuscular Hemoglobin 32.1 pg (28.0-33.3); Mean Corpuscular Volume 95.2 fL (83.0-100.0); Mean Platelet Volume 10.4 fL (9.4-12.4); Platelet Count 196 K/mcL (140-400); Red Blood Count 3.96 M/mcL (3.82-4.97); Red Cell Distribution Width 13.8 % (11.5-14.5); White Blood Count 7.2 K/mcL (4.3-11.1)
[2021-12-10 02:09] LABS: Hemoglobin 12.7 g/dL (11.5-15.4)
[2021-12-10 02:25] LABS: Chol/HDL Ratio 4.1 (0-4.9); Magnesium 1.5 mg/dL (1.6-2.6)
[2021-12-10 02:28] LABS: BUN/Creatinine Ratio 22 (6-26); Blood Urea Nitrogen 16 mg/dL (6-20); Calcium 7.5 mg/dL (8.6-10.3); Carbon Dioxide 21 mEq/L (23-29); Chloride 108 mEq/L (98-107); Glucose 82 mg/dL (70-105); Osmolality,Calculated 284 (280-300); Potassium 3.4 mEq/L (3.5-5.1); Sodium 137 mEq/L (136-145); eGFR For African Americans > 60 (> 60); eGFR For Non-African Americans > 60 (> 60)
[2021-12-10 02:51] LABS: Thyroid Stimulating Hormone 5.362 mcIU/mL (0.340-5.600)
[2021-12-10 03:40] LABS: Estimated Average Glucose 105 mg/dl; Hemoglobin A1C 5.3 %
[2021-12-10] MEDS: *HR* Heparin 5,000 UNIT/ML VIAL SQ SCH ×3 (05:54→20:05)
[2021-12-10] MEDS: Nitroglycerin 0.4 MG TAB.SUBL SL PRN (05:55)
[2021-12-10] MEDS ORDERED: Potassium Chloride Elixir 20 MEQ/15 ML UDC PO ONE (07:51)
[2021-12-10] MEDS ORDERED: Magnesium Sulfate 1 GM/102 ML PIGGYBACK IVPB ONE (07:51)
[2021-12-10] MEDS: NIFEdipine XL (24 HR) 60 MG TAB.ER.24 PO SCH (09:40)
[2021-12-10] MEDS: Aspirin Enteric Coated 325 MG Tablet PO SCH (09:40)
[2021-12-10] MEDS: Ranolazine 500 MG TAB.ER.12H PO SCH ×2 (09:40→20:05)
[2021-12-10] MEDS: Isosorbide MONOnitrate (24 HR) 30 MG TAB.ER.24H PO SCH (09:42)
[2021-12-10] MEDS ORDERED: Prochlorperazine 10 MG/2 ML VIAL IVP PRN (19:33)
[2021-12-10] MEDS: lamoTRIgine 100 MG TABLET PO SCH (20:05)
[2021-12-11] MEDS: *HR* Heparin 5,000 UNIT/ML VIAL SQ SCH (05:15)
[2021-12-11] MEDS ORDERED: Regadenoson 0.4 MG/5 ML SYRINGE IVP ONE (06:21)
[2021-12-11 06:53] LABS: Basophils % 0.3 %; Eosinophils # 0.1 K/mcL (0.0-0.6); Eosinophils % 1.6 %; Hematocrit 36.4 % (35.3-44.9); Hemoglobin 12.1 g/dL (11.5-15.4); Immature Granulocytes % 0.1 % (0-4); Lymphocytes # 3.6 K/mcL (0.6-4.6); Lymphocytes % 46.5 %; Mean Corpuscular HGB Conc 33.2 g/dL (31.6-35.5); Mean Corpuscular Hemoglobin 31.3 pg (28.0-33.3); Mean Corpuscular Volume 94.3 fL (83.0-100.0); Mean Platelet Volume 10.3 fL (9.4-12.4); Monocytes # 0.6 K/mcL (0.0-1.3); Monocytes % 8.2 %; Neutrophils # 3.3 K/mcL (1.6-8.9); Platelet Count 212 K/mcL (140-400); Red Blood Count 3.86 M/mcL (3.82-4.97); Red Cell Distribution Width 14.2 % (11.5-14.5); Segmented Neutrophils % 43.3 %; White Blood Count 7.7 K/mcL (4.3-11.1)
[2021-12-11] MEDS: Aspirin Enteric Coated 325 MG Tablet PO SCH (08:46)
[2021-12-11] MEDS: NIFEdipine XL (24 HR) 60 MG TAB.ER.24 PO SCH (08:46)
[2021-12-11] MEDS: Ranolazine 500 MG TAB.ER.12H PO SCH (08:46)
[2021-12-11] MEDS: Isosorbide MONOnitrate (24 HR) 30 MG TAB.ER.24H PO SCH (08:48)
[2021-12-11 08:57] LABS: Alanine Aminotransferase 15 Units/L (7-52); Albumin 3.3 g/dL (3.5-5.7); Albumin/Globulin Ratio 1.4 (1.1-2.2); Alkaline Phosphatase 59 Units/L (34-104); Aspartate Amino Transferase 20 Units/L (13-39); BUN/Creatinine Ratio 13 (6-26); Bilirubin,Total 0.2 mg/dL (0.3-1.0); Blood Urea Nitrogen 11 mg/dL (6-20); Carbon Dioxide 24 mEq/L (23-29); Chloride 108 mEq/L (98-107); Globulin 2.3 g/dL (2.4-3.5); Glucose 88 mg/dL (70-105); Osmolality,Calculated 287 (280-300); Potassium 3.7 mEq/L (3.5-5.1); Sodium 139 mEq/L (136-145); Total Protein 5.6 g/dL (6.4-8.9); eGFR For African Americans > 60 (> 60); eGFR For Non-African Americans > 60 (> 60)
[2021-12-11 11:25] VITALS: BP 107/67; PULSE 68; TEMP 98.5; O2SAT 93
== END 2021-12-11 16:11 | disposition home or self-care (01) ==
LOC: EMEROOARM 17:03 → 3ANU 17:03 → SUATTDRO 18:56 → 3ANU 21:25
PROVIDERS: ADMIT Internal Medicine; ATTEND Family Medicine